=== PATIENT | female | born 1960 | race Caucasian/White ===

== ENCOUNTER 2017-05-30 20:35 | Emergency (ER) | payer BC, OTHER ==
[~2017-05-30] VITALS: Ht 152.4 cm; Wt 66.7 kg
[2017-05-30] MEDS ORDERED: PEPCID20 MG PO (20:58)
[2017-05-30] MEDS ORDERED: PREDNISONE20 MG PO (20:58)
[2017-05-30 21:32] VITALS: BP 143/72
== END 2017-05-30 21:33 | disposition home or self-care (01) ==
LOC: EME 20:35
DX: L50.0 Allergic urticaria (principal)
CPT/HCPCS: 99281; 99284; J7512